=== PATIENT | female | born 1950 | race Caucasian/White ===

== ENCOUNTER → 2016-05-29 | Outpatient (CLI) | payer BC ==
--- NOTE | 2016-05-29 14:50 | CT ---
EXAMINATION TYPE: CT angio abdomen pelvis DATE OF EXAM: 05/29/2016 2:36 PM HISTORY: Follow up to [facility] CT DLP: 637.1mGycm Automated Exposure Control for Dose Reduction was Utilized. CONTRAST: CTA scan of the abdomen and pelvis is performed without oral and without and with IV Contrast, patien t injected with 100 mL of Omnipaque 350. Three-D reconstructed images are created on independent work station and reviewed. COMPARISON: CTA abdomen and pelvis January 05, 2016. FINDINGS: VASCULAR: There is redemonstration of prominent infrarenal abdominal aortic aneurysm with significant peripheral noncalcified plaque. Aneurysm measures 4.0 x 4.5 cm transversely on axial image 31 slight ly larger than prior exam of 3.9 x 4.3 cm on axial image 33. Length of aneurysm is roughly 6 cm on co val and sagittal images similar to prior study. No aneurysmal continuation into common iliac arteri es is seen. There is prominent eccentric calcified plaque in common iliac arteries bilaterally with stenosis just under 50% felt present on the left. There is moderate to severe calcified plaque in internal/externa l iliac arteries bilaterally without significant stenosis seen. More mild plaque is seen at common fe moral artery level bilaterally extending into superficial and deep femoral arteries bilaterally. There is redemonstration of patent high origin celiac axis right at level of diaphragmatic hiatus. No suspicious narrowing is seen to suggest median arcuate ligament syndrome. There is patent SMA with f airly moderate mixed plaque. There are patent bilateral single renal arteries. There is patent CHITRA id entified. LUNG BASES: No significant abnormality is appreciated. LIVER/GB: No significant abnormality is appreciated. PANCREAS: No significant abnormality is seen. SPLEEN: No significant abnormality is seen. ADRENALS: No significant abnormality is seen. KIDNEYS: No significant abnormality is seen. BOWEL: No significant abnormality is seen. UTERUS/ADNEXA: Uterus is surgically absent or markedly atrophic in appearance. LYMPH NODES: No greater than 1cm abdominal or pelvic lymph nodes are appreciated. OSSEOUS STRUCTURES: There is moderate to severe disc space narrowing with vacuum disc phenomenon at l umbosacral junction. OTHER: No significant additional abnormality is seen. IMPRESSION: There is redemonstration of roughly 6 cm in length abdominal aortic aneurysm measuring up to 4.5 cm in diameter on my measurement stable or slightly more prominent in size on my measurements . Note is made of persistent severe calcified plaque bilateral common iliac arteries with stenosis ap proaching 50% on the left felt present. 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
== END | disposition home or self-care (01) ==
LOC: RADCTMAIN 13:44
PROVIDERS: ATTEND Surgery
DX: I71.4 Abdominal aortic aneurysm, without rupture (principal); I77.1 Stricture of artery
CPT/HCPCS: 36415; 74174; Q9967